=== PATIENT | male | born 1950 | race Caucasian/White ===

== ENCOUNTER 2017-10-06 17:13 | Emergency (ER) | payer BC, MEDICARE ==
[~2017-10-06] VITALS: Ht 170.2 cm; Wt 93.9 kg
[~2017-10-06 17:13] MED LIST: ASPIRIN CHEW81 MG PO; BACTRIM DS TAB1 EACH PO; CENTRUM SILVER1 EAC3 PO; CLOPIDOGREL75 MG PO; LATANOPROST2.5 ML OP; LEVAQUIN500 MG PO; LOSARTAN POTAS100 MG PO; LOTEMAX5 ML OP; PRESERVISION A1 EACH PO; TERAZOSIN HCL2 MG PO; VITAMIN C1000 MG PEG
--- OUTSIDE RECORDS SUMMARY | 2017-10-06 17:16 | XMS REPORT | Clinical Summary ---
Author Author [facility] Organization [facility] Address Unknown Phone Unavailable Care Team Providers Care Jalousie Installer Name Role Phone Lasha Rothman MD PCP Allergies No Known Allergies Current Medications Prescription Sig. Disp. Refills Start End Date Status Date terazosin (HYTRIN) 2 MG TK 1 C PO BID 04/25/20 Active capsule 17 clopidogrel (PLAVIX) 75 Take 75 mg by mouth 3 05/23/19 Active mg tablet daily. 18 fluticasone (FLONASE) 50 2 sprays by Each Nare 1 05/24/19 Active mcg/actuation nasal spray route daily. 18 losartan (COZAAR) 100 MG TK 1 T PO D 0 05/13/20 Active tablet 17 pravastatin (PRAVACHOL) TAKE 1 TABLET DAILY ONCE 1 07/24/19 Active 40 MG tablet A DAY ORALLY 18 brimonidine-timolol Administer 1 drop to both Active (COMBIGAN) 0.2-0.5 % eyes every 12 (twelve) ophthalmic solution hours. acetaminophen (TYLENOL) Take 325 mg by mouth Active 325 MG tablet every 6 (six) hours as needed for fever. diphenhydrAMINE Take 25 mg by mouth Active (BENADRYL) 25 mg tablet nightly as needed for sleep. multivitamin (THERAGRAN) Take 1 tablet by mouth Active tablet daily. ascorbic acid, vitamin C, Take 1,000 mg by mouth Active (VITAMIN C) 500 MG tablet daily. aspirin (ECOTRIN) 81 MG Take 81 mg by mouth Active enteric coated tablet daily. 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 Procedure Pass General Surgery 08/07/2017 Surgery General Surgery Cordell Pierre MD LEFT PKP, VITRECTOMY 08/06/2017 Anesthesia General Surgery eTd Duncan MD Event 08/03/2017 Hospital Radiology Cordell Pierre MD Encounter 08/03/2017 Pre-Admit Pre-Admission Testing Cordell Pierre MD Preop testing (Primary Testing Dx) Appointment after 10/05/2016 Family History Medical History Relation Name Comments Hypertension Father Corneal ulcer Mother Relation Name Status Comments Father Alive Mother Social History Tobacco Use Types Packs/Day Years Used Date Former Smoker 2 36 Smokeless Tobacco: Never Used Alcohol Use Drinks/Week oz/Week Comments Yes wine every other day Sex Assigned at Date Recorded Not on file Last Filed Vital Signs Vital Sign Reading Time Taken Blood Pressure 136/75 08/07/2017 10:53 AM CDT Pulse 70 08/07/2017 10:53 AM CDT Temperature 36.4 C (97.6 F) 08/07/2017 10:45 AM CDT Respiratory Rate 11 08/07/2017 10:45 AM CDT Oxygen Saturation 95% 08/07/2017 10:45 AM CDT Inhaled Oxygen - - Concentration Weight 99.4 kg (219 lb 3.2 oz) 08/07/2017 6:06 AM CDT Height 167.6 cm (5' 6") 08/07/2017 6:06 AM CDT Body Mass Index 35.38 08/07/2017 6:06 AM CDT Plan of Treatment Health Maintenance Due Date Last Done Comments COLON CANCER SCREENING 01/25/2002 SHINGRIX VACCINE (#1) 01/25/2002 ZOSTER VACCINE 2012 PNEUMOCOCCAL 01/25/2017 POLYSACCHARIDE VACCINE AGE 65 AND OVER PNEUMOCOCCAL-13 01/25/2017 INFLUENZA VACCINE 12/19/2017 Implants Implanted Type Area Vulnerability Researcher Device Expiration Model / Identifier Date Serial / Lot Tissue Corneal - [id number] - Ophthalmic Left: [employer] [id number] 08/14/2017 PKP / [id number] Implants Cornea [id number] Implanted: Qty: 1 on 08/07/2017 by [id number] / Cordell Pierre MD N/A Procedures Procedure Name Priority Date/Time Associated Diagnosis Comments MO AN ELECTIVE Routine 08/07/2017 ENDOTRACHEAL AIRWAY 7:54 AM CDT Procedure Note - Priti Dhillon, HARDWARE ENGINEER - 08/07/2017 7:54 AM CDT Airway Date/Time: 08/07/2017 7:32 AM Performed by: PRITI DHILLON Authorized by: TED DUNCAN Location: OR Urgency: Elective Difficult Airway: No Resident/C RNA/AA: PRITI DHILLON Preoxygena rigo with 100% O2: Yes C-spine Precaution s Maintained Throughout : Yes Mask Ventilatio n: Easy mask Final Airway Type: Endotrache al airway Final Endotrache al Airway: ETT Cuffed: Yes Technique Used: Direct laryngosco py Insertion Site: Oral Blade Type: Puckett Laryngosco pe Blade/Vide olaryngosc ope Blade Size: 2 ETT Size (mm): 8.0 Cuff at minimum occlusion pressure: Yes Measured from: Lips ETT to Lips (cm): 22 Placement Verified by: CO2 detection, direct visualizat ion and equal breath sounds Laryngosco pic view: Grade IIa - partial view of glottis Rapid Sequence Induction (RSI): No Modified RSI: No Number of Attempts at Approach: 1 Dentition /lips/tong ue as per pre-op. Head/neck neutral during DL x 1. 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 7:15 AM CDT Case Notes MARGARITA Special Needs TISSUE ORDERED PER CA; tissue will arrive 08/07 and 0630PT HAS A [employer]ER after 10/05/2016 Results * Surgical pathology request (08/07/2017 12:07 PM) Component Value Ref Range Surgical pathology report See link below for PDF Lab Report Result status This is Final Report to [id number] Specimen Performing Laboratory [facility] DEPARTMENT OF PATHOLOGY AND GENOMIC MEDICINE [address] [place] [id number] * POC glucose (08/07/2017 10:18 AM) Component Value Ref Range POC glucose 127 (H) 65 - 99 mg/dL Comment: Meter ID: [id number] Orbitread Operator: Lyn Irvin Specimen Performing Laboratory [facility] DEPARTMENT OF PATHOLOGY AND GENOMIC MEDICINE [address] [place] [address] * Aerobic culture (08/07/2017 8:06 AM) Component Value Ref Range Aerobic culture isolate No growth after 3 days. Comment: Specimen Information Specimen Source: Eye Specimen Site: Donor media Specimen Performing Laboratory Eye - Donor media [facility] DEPARTMENT OF PATHOLOGY AND GENOMIC MEDICINE [address] [place] [id number] * Gram stain (08/07/2017 8:06 AM) Component Value Ref Range Gram stain isolate No WBC's or organisms seen. Comment: Specimen Information Specimen Source: Eye Specimen Site: Donor media Specimen Performing Laboratory Eye - Donor media [facility] DEPARTMENT OF PATHOLOGY AND GENOMIC MEDICINE [address] [place] [address] * Fungus culture (08/07/2017 8:06 AM) Component Value Ref Range Fungus culture isolate No growth after 4 weeks of incubation. Comment: Specimen Information Specimen Source: Eye Specimen Site: Donor media Specimen Performing Laboratory Eye - Donor media [facility] DEPARTMENT OF PATHOLOGY AND GENOMIC MEDICINE [address] [place] [address] * Anaerobic culture (08/07/2017 8:06 AM) Component Value Ref Range Anaerobic culture isolate No anaerobic organisms isolated. Comment: Specimen Information Specimen Source: Eye Specimen Site: Donor media Specimen Performing Laboratory Eye - Donor [facility] DEPARTMENT [place] [address] * XR Chest 2 Vw (08/03/2017 9:55 AM) Specimen Performing Laboratory [facility] [address] [place] [address] Narrative EXAMINATION:XR CHEST 2 VW CLINICAL HISTORY:Z01.818 Encounter for other preprocedural examination, preop COMPARISON:None FINDINGS: The heart size is borderline. A multilead pacemaker is in place. The mediastinum is otherwise unremarkable. The lungs are clear. IMPRESSION: There are no acute cardiopulmonary abnormalities identified. [id number] Procedure Note Interface, Radiology Results Incoming - 08/03/2017 10:56 AM CDT EXAMINATION: XR CHEST 2 VW CLINICAL HISTORY: Z01.818 Encounter for other preprocedural examination, preop COMPARISON: None FINDINGS: The heart size is borderline. A multilead pacemaker is in place. The mediastinum is otherwise unremarkable. The lungs are clear. IMPRESSION: There are no acute cardiopulmonary abnormalities identified. [id number] * CBC hemogram (08/03/2017 8:59 AM) Component Value Ref Range WBC 5.24 4.50 - 11.00 k/uL RBC 4.57 4.40 - 6.00 m/uL HGB 14.5 14.0 - 18.0 g/dL HCT 43.4 41.0 - 51.0 % MCV 95.0 82.0 - 100.0 fL MCH 31.7 27.0 - 34.0 pg MCHC 33.4 31.0 - 37.0 g/dL RDW - SD 44.1 37.0 - 55.0 fL MPV 10.2 8.8 - 13.2 fL Platelet count 200 150 - 400 k/uL Nucleated RBC 0.00 /100 WBC Specimen Performing Laboratory Blood [facility] DEPARTMENT OF PATHOLOGY AND GENOMIC MEDICINE [address] [place] [address] after 10/05/2016 Insurance Payer Benefit Subscriber ID Type Phone Address Plan / Group MEDICARE MEDICARE xxxxxxxxxx Medicare [place], [place] PART A AND B BCBS BCBS xxxxxxxxxxxx Indemnity PAR/TRAD PLAN
[2017-10-06] MEDS ORDERED: KETOROLAC TROMETHAMINE 30 MG/ML VIAL IV ONE (17:45)
[2017-10-06 18:07] LABS: BASOPHILS # (AUTO) 0.1 (0.0-0.1); BASOPHILS % 0.9 % (0.0-1.0); EOSINOPHILS # (AUTO) 0.2 (0.0-0.4); EOSINOPHILS % 2.9 % (0.0-6.0); HEMOGLOBIN 13.7 g/dL (14.0-18.0); LYMPHOCYTES % 13.6 % (18.0-39.1); MEAN CORPUSCULAR HEMOGLOBIN 32.3 pg (28-32); MEAN CORPUSCULAR HGB CONC 34.3 g/dL (31-35); MEAN CORPUSCULAR VOLUME 94.3 fL (81-99); MONOCYTES # (AUTO) 0.6 (0.2-0.8); NEUTROPHILS # (AUTO) 5.7 (2.1-6.9); NEUTROPHILS % 74.2 % (38.7-80.0); PLATELET COUNT 231 x10e3/uL (140-360); RED BLOOD COUNT 4.24 x10e6/uL (4.3-5.7)
[2017-10-06 18:09] LABS: CLARITY,URINE CLEAR (CLEAR); COLOR,URINE YELLOW (YELLOW)
[2017-10-06 18:10] LABS: LEUKOCYTE ESTERASE ,URINE NEGATIVE (NEGATIVE); NITRITE,URINE NEGATIVE (NEGATIVE)
[2017-10-06 18:11] LABS: BILIRUBIN,URINE NEGATIVE (NEGATIVE); KETONES,URINE NEGATIVE (NEGATIVE); PROTEIN,URINE DIPSTICK NEGATIVE (NEGATIVE); URINE UROBILINOGEN 0.2 mg/dL (0.2 - 1)
--- NOTE | 2017-10-06 18:24 | Diagnostic Imaging Report ---
EXAMINATION: CT of the abdomen and pelvis without contrast. TECHNIQUE: Spiral CT images of the abdomen and pelvis were performed from the lung bases to the lesser trochanters. No intravenous contrast was given per renal stone protocol. Coronal and sagittal reformatted images were obtained. COMPARISON: None. CLINICAL HISTORY:Right flank pain for 4 days, difficulty urinating DISCUSSION: ABSENCE OF INTRAVENOUS CONTRAST DECREASES SENSITIVITY FOR DETECTION OF FOCAL LESIONS AND VASCULAR PATHOLOGY. ABDOMEN/PELVIS: LOWER THORAX: Distal portion of pacemaker wires noted in the right atrium and right ventricle. Calcified pleural plaque in the right posterior lower lobe pleura. Lung bases are otherwise clear. HEPATOBILIARY: 2.8 x 2.3 cm simple cyst in hepatic segment VII (series 3, image 33). 1.6 x 1.4 cm simple cyst in hepatic segment IVB (series 3, image 51). No other focal lesions. No intra or extrahepatic biliary ductal dilation. GALLBLADDER: No radio-opaque stones or sludge. No wall thickening. SPLEEN: Mild splenomegaly, measuring 14.0 cm in AP diameter. PANCREAS: No focal masses or ductal dilatation. ADRENALS: No adrenal nodules. KIDNEYS/URETERS: 3-4 mm partially obstructing calculus in the distal right ureter just proximal to the UVJ (series 3, image 139), which results in mild pelvocaliectasis. No significant perirenal or periureteral stranding. No other renal or ureteral calculi. No left hydronephrosis or obstruction. 1.9 cm simple cyst in the superior pole of the right kidney (series 3, image 51). PELVIC ORGANS/BLADDER: Bladder is decompressed but grossly unremarkable. Prostate is unremarkable. Pelvic phleboliths. PERITONEUM/RETROPERITONEUM: No free air or fluid. LYMPH NODES: No intra-abdominal,retroperitoneal, pelvic or inguinal lymphadenopathy. VESSELS: Mild atherosclerotic calcification of the infrarenal abdominal aorta and iliac vessels. GI TRACT: No bowel dilation or evidence of obstruction. No pericolonic inflammatory changes. Appendix is well identified and normal in caliber. A few scattered diverticula in the sigmoid colon, without diverticulitis. BONES AND SOFT TISSUES: No aggressive lytic lesions. Multilevel degenerative disc changes in the lumbosacral spine, worse at L3-L4, L4-L5 and L5-S1. Soft tissues are grossly unremarkable. IMPRESSION: 1. 3-4 mm partially obstructing calculus in the distal right ureter just proximal to the UVJ, which results in mild pelvocaliectasis. 2. No other renal or ureteral calculi. 3. 2.8 and 1.6 cm simple hepatic cysts. 4. Mild splenomegaly. Signed by: Dr. Ken Peterson M.D. on 10/06/2017 6:20 PM
[2017-10-06 18:28] LABS: BLOOD UREA NITROGEN 22 mg/dL (7-26); BUN/CREATININE RATIO 19 (6-25); CALCIUM 9.6 mg/dL (8.4-10.2); CARBON DIOXIDE 20 mmol/L (22-29); CHLORIDE 110 mmol/L (98-107); CREATININE, SERUM 1.17 mg/dL (0.72-1.25); EST GLOMERULAR FILTRATION RATE > 60 ML/MIN (60-); GLUCOSE 98 mg/dL (74-118); SODIUM 140 mmol/L (136-145)
[2017-10-06] MEDS ORDERED: KETOROLAC TROMETHAMINE 60 MG/2 ML VIAL IM ONE (18:30)
[2017-10-06 18:34] LABS: CALCIUM OXALATE CRYSTALS,UR FEW (FEW); EPITHELIAL CELLS,URINE MANY /LPF; RBC,URINE 0-5 /HPF (0-5)
[2017-10-06] MEDS ORDERED: HYDROCODONE/APAP 10MG-325MG TAB PO NR (18:45)
[2017-10-06 18:55] VITALS: BP 165/99
== END 2017-10-06 19:07 | disposition home or self-care (01) ==
LOC: ER 17:13
DX: R10.31 Right lower quadrant pain (principal); R11.0 Nausea; N20.1 Calculus of ureter; I10 Essential (primary) hypertension; I25.10 Atherosclerotic heart disease of native coronary artery without angina pectoris; E78.5 Hyperlipidemia, unspecified; I73.9 Peripheral vascular disease, unspecified
CPT/HCPCS: 36415; 74176; 80048; 81001; 85025; 99284; J1885

== ENCOUNTER → 2017-11-28 | Outpatient (CLI) | payer MEDICARE, BC ==
--- NOTE | 2017-11-28 10:52 | Diagnostic Imaging Report ---
PROCEDURE:X-RAY ABDOMEN - KUB COMPARISON:CT abdomen and pelvis 10/06/2017. INDICATIONS:RENAL COLIC FINDINGS: No calcifications project over the renal shadows or expected ureteral courses. Small distal right ureteral calculus described on the comparison CT is not identified by plain radiography. Multiple pelvic phleboliths. Bowel gas pattern is nonobstructive. No mass effect or organomegaly. Regional skeletal structures are intact. Degenerative changes of the left sacroiliac joint. CONCLUSION: no plain film evidence of urolithiasis. Distal right ureteral calculus is seen on comparison CT is not identified by plain radiography. Dictated by: Yoel Tran M.D. on 11/28/2017 at 10:57 Electronically approved by: Yoel Tran M.D. on 11/28/2017 at 10:57
== END ==
LOC: RAD 10:25
PROVIDERS: ATTEND Family Medicine
DX: N23 Unspecified renal colic (principal)
CPT/HCPCS: 74018

== ENCOUNTER 2018-01-01 09:53 | Observation (INO) | payer MEDICARE, BC ==
[~2018-01-01] VITALS: Ht 167.6 cm; Wt 97.5 kg
[2018-01-01] MEDS ORDERED: GLUCAGON FOR INJ 1 MG VIAL IV ONE (10:15)
[2018-01-01 10:39] LABS: BASOPHILS % 0.6 % (0.0-1.0); EOSINOPHILS # (AUTO) 0.1 (0.0-0.4); EOSINOPHILS % 2.3 % (0.0-6.0); HEMATOCRIT 41.7 % (38.2-49.6); HEMOGLOBIN 14.5 g/dL (14.0-18.0); LYMPHOCYTES # (AUTO) 1.2 (1.0-3.2); LYMPHOCYTES % 21.8 % (18.0-39.1); MEAN CORPUSCULAR HEMOGLOBIN 32.6 pg (28-32); MEAN CORPUSCULAR HGB CONC 34.8 g/dL (31-35); MEAN CORPUSCULAR VOLUME 93.7 fL (81-99); MONOCYTES # (AUTO) 0.4 (0.2-0.8); NEUTROPHILS # (AUTO) 3.5 (2.1-6.9); NEUTROPHILS % 67.1 % (38.7-80.0); PLATELET COUNT 194 x10e3/uL (140-360); RED BLOOD COUNT 4.45 x10e6/uL (4.3-5.7); RED CELL DISTRIBUTION WIDTH 12.1 % (11.7-14.4)
[2018-01-01 10:42] LABS: INR 1.05; PROTHROMBIN TIME 12.9 seconds (11.9-14.5)
[2018-01-01 10:43] LABS: PARTIAL THROMBOPLASTIN TIME 26.8 seconds (23.8-35.5)
[2018-01-01 10:55] LABS: ALANINE AMINOTRANSFERASE 18 IU/L (0-55); ALBUMIN 4.1 g/dL (3.5-5.0); ALBUMIN/GLOBULIN RATIO 1.3 (0.8-2.0); ALKALINE PHOSPHATASE 62 IU/L (40-150); ANION GAP 13.8 mmol/L (8-16); BLOOD UREA NITROGEN 16 mg/dL (7-26); BUN/CREATININE RATIO 20 (6-25); CALCIUM 9.4 mg/dL (8.4-10.2); CARBON DIOXIDE 24 mmol/L (22-29); CHLORIDE 101 mmol/L (98-107); CREATININE, SERUM 0.81 mg/dL (0.72-1.25); EST GLOMERULAR FILTRATION RATE > 60 ML/MIN (60-); GLUCOSE 109 mg/dL (74-118); POTASSIUM 3.8 mmol/L (3.5-5.1); SODIUM 135 mmol/L (136-145)
--- NOTE | 2018-01-01 11:44 | Diagnostic Imaging Report ---
PROCEDURE: SOFT TISSUE NECK COMPARISON: None. INDICATIONS: DYSPHAGIA FINDINGS: C1 through the upper aspect of C7 are visualized on the lateral view. No evidence of fracture. There is mild anterolisthesis of C3 on C4. There are multilevel degenerative disc and facet degenerative changes, most pronounced at C5-C6. The prevertebral soft tissues are unremarkable. No evidence of radiopaque foreign body. CONCLUSION: No radiographic etiology identified for the patient's dysphagia. A swallow study or CT may be considered if clinically indicated. Multilevel degenerative disc changes in the cervical spine, most pronounced at C5-C6. Dictated by: IHSAN MALLOY M.D. on 01/01/2018 at 11:50 Electronically approved by: IHSAN MALLOY M.D. on 01/01/2018 at 11:50
[2018-01-01] MEDS: SODIUM CHLORIDE 0.9% 1000ML 1,000 ML IV SCH ×2 (11:59→21:20)
[2018-01-01] MEDS ORDERED: PANTOPRAZOLE 40 MG 10ML VIAL IV SCH ×2 (12:30→21:00)
[2018-01-01] MEDS ORDERED: SUCCINYLCHOLINE 200 MG/10 ML SYR ONE (12:55)
[2018-01-01] MEDS ORDERED: PROPOFOL IV EMULSION 10 MG/ML 20 ML VIAL ONE (12:55)
[2018-01-01] MEDS ORDERED: ROCURONIUM BROMIDE 10 MG/ML 5ML VIAL ONE (12:55)
[2018-01-01] MEDS ORDERED: COMBIGAN EYE DRO5 ML (13:24)
[2018-01-01] MEDS ORDERED: DORZOLAMIDE HCL10 ML OP (13:30)
[2018-01-01] MEDS ORDERED: DUREZOL5 ML (13:30)
[2018-01-01 13:34] VITALS: BP 129/76
[2018-01-01 13:54] VITALS: BP 129/76
[2018-01-01 13:56] VITALS: BP 129/76
[2018-01-01] MEDS ORDERED: FENTANYL CITRATE/PF 100MCG/2 ML INJ ONE (14:01)
[2018-01-01] MEDS ORDERED: METOCLOPRAMIDE HCL 10 MG/2ML VIAL IV ONE (15:15)
--- NOTE | 2018-01-01 15:28 | Operative Report ---
DATE OF PROCEDURE: January 01, 2018 REFERRING PHYSICIAN: Prudence Rothman MD PROCEDURE PERFORMED: Esophagogastroduodenoscopy with esophageal dilatation and biopsies. INDICATIONS FOR EGD: Dysphagia, possible foreign body in esophagus. MEDICATION: Patient was done under general endotracheal anesthesia. Please see anesthesiologist's note. PROCEDURE: With the patient in the supine position and after adequate induction of general endotracheal anesthesia, the flexible fiberoptic Olympus gastroscope was introduced into the esophagus under direct visualization without any difficulty. There was some patchy erythema noted in the distal esophagus. Some tongues of velvety red mucosa were noted to extend proximally from the GE junction, and biopsies were obtained to rule out Felix's. A mild stricture was noted at the GE junction that was dilated to a size 52-Micronesian [place]oredo. The scope was then advanced with ease into the stomach, and the mucosa overlying the antrum and the body revealed some patchy erythema and mild to moderate edema, and biopsies were obtained and sent to stain for H. pylori. The pylorus was intubated with ease, and the scope was advanced all the way to the 2nd portion of the duodenum. The scope was then withdrawn slowly. Mucosa overlying the proximal 2nd portion and the duodenal bulb appeared to be within normal limits. The scope was then withdrawn back into the stomach and retroflexed, and the mucosa overlying the fundus and the cardia appeared to be within normal limits. The scope was then straightened out. The stomach was decompressed. The scope was subsequently withdrawn. Patient tolerated the procedure well. IMPRESSION 1. Distal esophagitis. 2. Rule out Felix's esophagus. 3. 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 4. Gastritis, biopsied. Biopsy sent to stain for H. pylori. PLAN: Follow up histology. Initiate Protonix 40 mg 1 p.o. q.a.m. a.c. Job#: [id number] cc:PRUDENCE ROTHMAN MD
[2018-01-01] MEDS ORDERED: PANTOPRAZOLE 40 MG 10ML VIAL IV NR (15:45)
[2018-01-01 16:01] VITALS: BP 124/74
[2018-01-01] MEDS: METOCLOPRAMIDE HCL 10 MG/2ML VIAL IV SCH ×2 (16:04→21:22)
[2018-01-01 20:00] VITALS: BP 119/74
[2018-01-01 21:06] VITALS: BP 119/74
== END 2018-01-01 22:48 | disposition home or self-care (01) ==
LOC: ER 09:53 → ERHOLD 11:50 → IMCU 13:10
PROVIDERS: ADMIT Internal Medicine Gastroenterology; ATTEND Internal Medicine Gastroenterology
DX: K22.2 Esophageal obstruction (principal); I73.9 Peripheral vascular disease, unspecified; Z95.0 Presence of cardiac pacemaker; E78.5 Hyperlipidemia, unspecified; I10 Essential (primary) hypertension; K29.70 Gastritis, unspecified, without bleeding; K22.70 Barrett's esophagus without dysplasia; H40.9 Unspecified glaucoma; K21.0 Gastro-esophageal reflux disease with esophagitis; Z87.891 Personal history of nicotine dependence
CPT/HCPCS: 36415; 43249; 43254; 70360; 80053; 85025; 85610; 85730; 88305; 88312; 99284; G0378; J1610; J2765; J7030; 43239

== ENCOUNTER → 2018-07-20 | Day surgery (SDC) | payer MEDICARE, BC ==
[~2018-07-20] MED LIST changes: +BENADRYL25 M1 PO; +COMBIGAN EYE DRO5 ML; +DORZOLAMIDE HCL10 ML OP; +DUREZOL5 ML; +FENTANYL CITRATE/PF 100MCG/2 ML INJ ONE; +FLONASE; +HYOSCYAMINE SULFATE 0.5 MG/ML INJ ONE; +LIDOCAINE HCL 2% LOCAL INJ 5 ML SDV VIAL INJ ONE; +LUMIGAN2.5 M1 OS; +MIDAZOLAM HCL 2 MG/2 ML VIAL ONE; +PANTOPRAZOLE SO40 MG PO; +PRAVASTATIN SOD80 MG PO; +PROPOFOL IV EMULSION 10 MG/ML 50 ML VIAL ONE; +TYLENOL PO; -VITAMIN C1000 MG PEG; +VITAMIN C1000 MG PO; +ZETIA10 MG PO
--- NOTE | 2018-07-20 20:34 | Operative Report ---
DATE OF PROCEDURE: 07/20/2018 SURGEON: Guero Hill MD PROCEDURE: EGD with esophageal brushings and colonoscopy with polypectomy and biopsies. INDICATIONS: 1. For EGD is dysphagia. 2. For colonoscopy is surveillance colonoscopy, personal history of colon polyps. MEDICATION: The patient was done under MAC. Please see anesthesiologist's note. PROCEDURE: With the patient in left lateral decubitus position, flexible fiberoptic Olympus gastroscope was introduced into the esophagus under direct visualization without any difficulty. There were some scattered whitish plaques noted and the cervical esophagus brushings were obtained to stain for [place]. Tongues of Felix's epithelium were noted in the distal esophagus. Those were not biopsied as biopsies were obtained in the recent past. The scope was then advanced with ease into the stomach traversing a small sliding hiatal hernia. Mucosa overlying the antrum and the body revealed some patchy areas of erythema. Pylorus was of normal contour and shape, was intubated with ease and the scope was advanced all the way to the 2nd portion of the duodenum. The scope was then withdrawn slowly and mucosa overlying the proximal 2nd portion and the duodenal bulb appeared to be within normal limits. The scope was then withdrawn back into the stomach and retroflexed and the mucosa overlying the fundus and the cardia appeared to be within normal limits. The scope was then straightened out, it was subsequently withdrawn. The patient tolerated procedure well. IMPRESSION: 1. Rule out [place] esophagitis. 2. Esophagus dilated to size 52-Maltese Loredo. 3. Felix esophagus. 4. Small sliding hiatal hernia. 5. Gastritis, mild. PLAN: Follow up brushings. Continue Protonix 40 mg one p.o. q.a.m. a.c. The patient was then turned around and after adequate lubrication of the anal canal, flexible fiberoptic Olympus colonoscope was inserted into the rectum with ease and advanced all the way to the cecum. Ileocecal valve was ulcerated and biopsies were obtained. It was intubated with ease and the scope was advanced into the terminal ileum. It grossly appeared to be within normal limits, but biopsies were obtained. The scope was then withdrawn back into the colon. It was then withdrawn slowly and several minute ulcerations were noted in the proximal ascending colon. Biopsies were obtained. Two polyps were removed per snare electrocautery from the ascending colon and one polypectomy site was hemoclipped. The transverse appeared to be within normal limits. Diverticular disease was noted to involve the distal descending and the sigmoid colon. In the distal sigmoid, there was some yellowish hue to the mucosa and biopsies were obtained to rule out lipoma. The rectum appeared to be within normal limits. The scope was then retroflexed into the distal rectum and small internal hemorrhoids were noted, none of which was actively bleeding. The scope was then straightened out, it was subsequently withdrawn. The patient tolerated procedure well. IMPRESSION: 1. Ulcerated ileocecal valve, biopsied. 2. Ulcerated proximal ascending colon, biopsied. 3. Ascending colon polyps x2, snared, one polypectomy site hemoclipped. 4. Diverticulosis. 5. Rule out lipoma, sigmoid colon. 6. Internal hemorrhoids, none actively bleeding. PLAN: Follow up pathology. The patient might benefit from a followup colonoscopy in 3-5 years. Guero Hill MD [facility] [place] /[id number] cc: Lasha Rothman MD
--- OUTSIDE RECORDS SUMMARY | 2018-07-22 10:33 | XMS REPORT | Clinical Summary ---
Author Author Nunez Jain Organization [facility] Address Unknown Phone Unavailable Care Team Providers Care Director Instructional Material Name Role Phone Lasha Rothman MD PCP Allergies No Known Allergies Medications End Date Status Medication Sig Dispensed Refills Start Date Active terazosin (HYTRIN) 2 MG TK 1 C PO BID 0 capsule 7 Active clopidogrel (PLAVIX) 75 Take 75 mg by 3 mg tablet mouth daily. 8 Active fluticasone (FLONASE) 50 2 sprays by 1 mcg/actuation nasal spray Each Nare 8 route daily. Active losartan (COZAAR) 100 MG TK 1 T PO D 0 tablet 7 Active pravastatin (PRAVACHOL) TAKE 1 TABLET 1 40 MG tablet DAILY ONCE A 8 DAY ORALLY Active brimonidine-timolol Administer 1 0 (COMBIGAN) 0.2-0.5 % drop to both ophthalmic solution eyes every 12 (twelve) hours. Active acetaminophen (TYLENOL) Take 325 mg 0 325 MG tablet by mouth every 6 (six) hours as needed for fever. Active diphenhydrAMINE Take 25 mg by 0 (BENADRYL) 25 mg tablet mouth nightly as needed for sleep. Active multivitamin (THERAGRAN) Take 1 tablet 0 tablet by mouth daily. Active ascorbic acid, vitamin C, Take 1,000 mg 0 (VITAMIN C) 500 MG tablet by mouth daily. Active aspirin (ECOTRIN) 81 MG Take 81 mg by 0 enteric coated tablet mouth daily. 07/01/2018 Discontinued ezetimibe (ZETIA) 10 mg Take 10 mg by 0 tablet mouth daily. 07/01/2018 Discontinued pantoprazole (PROTONIX) Take 20 mg by 0 20 MG EC tablet mouth daily. 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/07/2017 Hospital General Surgery Encounter Cordell Pierre MD 08/03/2017 Hospital Radiology Encounter Cordell Pierre MD Preop testing (Primary Dx) 08/03/2017 Pre-Admit Pre-Admission Testing Testing Appointment after 07/21/2017 Family History Medical History Relation Name Comments Hypertension Father Corneal ulcer Mother Relation Name Status Comments Father Alive Mother Social History Date Tobacco Use Types Packs/Day Years Used Former Smoker 2 36 Smokeless Tobacco: Never Used Alcohol Use Drinks/Week oz/Week Comments Yes wine every other day Sex Assigned at Date Recorded Not on file Industry Job Start Date Occupation Not on file Not on file Not on file Travel End Travel History Travel Start No recent travel history available. Last Filed Vital Signs Time Taken Vital Sign Reading 08/07/2017 10:53 AM CDT Blood Pressure 136/75 08/07/2017 10:53 AM CDT Pulse 70 08/07/2017 10:45 AM CDT Temperature 36.4 C (97.6 F) 08/07/2017 10:45 AM CDT Respiratory Rate 11 08/07/2017 10:45 AM CDT Oxygen Saturation 95% - Inhaled Oxygen - Concentration 06/26/2018 1:10 PM [facility] Weight 99.8 kg (220 lb) 06/26/2018 1:10 PM [facility] Height 167.6 cm (5' 6") 06/26/2018 1:10 PM [facility] Body Mass Index 35.51 Plan of Treatment Health Maintenance Due Date Last Done Comments COLON CANCER SCREENING 01/25/2002 SHINGLES VACCINES (#1) 01/25/2002 65+ PNEUMOCOCCAL VACCINE 01/25/2017 (1 of 2 - PCV13) PNEUMOCOCCAL 01/25/2017 POLYSACCHARIDE VACCINE AGE 65 AND OVER INFLUENZA VACCINE 12/19/2017 Implants Device Identifier Shelf Expiration Date Model / Serial / Lot Implanted Type Area Manufactur er [id number] 08/14/2017 PKP / [id number] / N/A Tissue Corneal - [id number] - Ophthalmic Left: Cornea [employer] [id number] Implants BANK Implanted: Qty: 1 on 08/07/2017 by Cordell Pierre MD Procedures Comments Procedure Name Priority Date/Time Associated Diagnosis SURGICAL PATHOLOGY Routine 08/07/2017 REQUEST 12:07 PM CDT POC GLUCOSE Routine 08/07/2017 10:18 AM CDT GRAM STAIN Routine 08/07/2017 8:06 AM CDT ANAEROBIC CULTURE Routine 08/07/2017 8:06 AM CDT FUNGUS CULTURE Routine 08/07/2017 8:06 AM CDT AEROBIC CULTURE Routine 08/07/2017 8:06 AM CDT KS AN ELECTIVE Routine 08/07/2017 ENDOTRACHEAL AIRWAY 7:54 AM CDT Procedure Note - Priti Dhillon, BELL NECK HAMMERER - 08/07/2017 7:54 AM CDT Airway Date/Time: [...] pre-op. Head/neck neutral during DL x 1. KERATOPLASTY, PENETRATING 08/07/2017 Corneal graft rejection 7:15 AM CDT Case Notes MARGARITA Special Needs TISSUE ORDERED PER CA; tissue will arrive 08/07 and 629PT HAS A [employer] PACEMAKER XR CHEST 2 VW Routine 08/03/2017 Preop testing 9:55 AM CDT CBC HEMOGRAM Routine 08/03/2017 Preop testing 8:59 AM CDT after 07/21/2017 Results * Surgical pathology request (08/07/2017 12:07 PM CDT) [facility] DEPARTMENT OF PATHOLOGY AND GENOMIC MEDICINE Surgical pathology report See link below for PDF Lab [facility] DEPARTMENT OF Report PATHOLOGY AND GENOMIC MEDICINE Result status This is Final Report to [facility] DEPARTMENT OF [id number] PATHOLOGY AND GENOMIC MEDICINE Performing Organization Address City/[facility] Phone Number [facility] DEPARTMENT OF [address] [place] [phone] PATHOLOGY AND GENOMIC MEDICINE * POC glucose (08/07/2017 10:18 AM CDT) POC glucose 127 (H) 65 - 99 mg/dL [facility] DEPARTMENT OF Comment: PATHOLOGY AND Meter ID: [id number] GENOMIC MEDICINE Product Engineering Manager: Lyn Irvin Performing Organization Address City/[facility] Phone Number [facility] DEPARTMENT [address] [place] [address] PATHOLOGY AND GENOMIC MEDICINE * Aerobic culture (08/07/2017 8:06 AM CDT) Aerobic culture isolate No growth after 3 days. [facility] DEPARTMENT OF Comment: PATHOLOGY AND Specimen Information GENOMIC MEDICINE Specimen Source: Eye Specimen Site: Donor media Specimen Eye - Donor media Performing Organization Address City/[facility] Phone Number [facility] DEPARTMENT OF [address] [place] [phone] PATHOLOGY AND GENOMIC MEDICINE * Gram stain (08/07/2017 8:06 AM CDT) Gram stain isolate No WBC's or organisms seen. [facility] DEPARTMENT OF Comment: PATHOLOGY AND Specimen Information GENOMIC MEDICINE Specimen Source: Eye Specimen Site: Donor media Specimen Eye - Donor media Performing Organization Address City/[facility]/Zipcode Phone Number [facility] DEPARTMENT OF [address] [place] [phone] PATHOLOGY AND GENOMIC MEDICINE * Fungus culture (08/07/2017 8:06 AM CDT) Fungus culture isolate No growth after 4 weeks of [facility] DEPARTMENT OF incubation. PATHOLOGY AND Comment: GENOMIC MEDICINE Specimen Information Specimen Source: Eye Specimen Site: Donor media Specimen Eye - Donor media Performing Organization Address City/[facility]/Zipcode Phone Number [facility] DEPARTMENT OF [address] [place] [phone] PATHOLOGY AND GENOMIC MEDICINE * Anaerobic culture (08/07/2017 8:06 AM CDT) Anaerobic culture isolate No anaerobic organisms [facility] DEPARTMENT OF isolated. PATHOLOGY AND Comment: GENOMIC MEDICINE Specimen Information Specimen Source: Eye Specimen Site: Donor media Specimen Eye - Donor media Performing Organization Address [facility]/Zipcode Phone Number [facility] DEPARTMENT [address] [address] PATHOLOGY AND GENOMIC MEDICINE * XR Chest 2 Vw (08/03/2017 9:55 AM CDT) Narrative Performed At EXAMINATION:XR CHEST 2 VW RADIANT CLINICAL HISTORY:Z01.818 Encounter for other preprocedural examination, preop COMPARISON:None FINDINGS: The heart size is borderline. A multilead pacemaker is in place. The mediastinum is otherwise unremarkable. The lungs are clear. IMPRESSION: There are no acute cardiopulmonary abnormalities identified. [id number] Procedure Note Interface, Radiology Results Incoming - 08/03/2017 10:56 AM CDT EXAMINATION: XR CHEST 2 VW CLINICAL HISTORY: Z01.818 Encounter for other preprocedural examination, preop COMPARISON: None FINDINGS: The heart size is borderline. A multilead pacemaker is in place. The mediastinum is otherwise unremarkable. The lungs are clear. IMPRESSION: There are no acute cardiopulmonary abnormalities identified. [id number] Performing Organization Address [facility]ode Phone Number [address] [phone] * CBC hemogram (08/03/2017 8:59 AM CDT) WBC 5.24 4.50 - 11.00 k/uL [facility] DEPARTMENT OF PATHOLOGY AND GENOMIC MEDICINE RBC 4.57 4.40 - 6.00 m/uL [facility] DEPARTMENT OF PATHOLOGY AND GENOMIC MEDICINE HGB 14.5 14.0 - 18.0 g/dL [facility] DEPARTMENT OF PATHOLOGY AND GENOMIC MEDICINE HCT 43.4 41.0 - 51.0 % [facility] DEPARTMENT OF PATHOLOGY AND GENOMIC MEDICINE MCV 95.0 82.0 - 100.[address] [facility] DEPARTMENT OF PATHOLOGY AND GENOMIC MEDICINE MCH 31.7 27.0 - 34.[address] [facility] DEPARTMENT OF PATHOLOGY AND GENOMIC MEDICINE MCHC 33.4 31.0 - 37.0 g/dL [facility] DEPARTMENT OF PATHOLOGY AND GENOMIC MEDICINE RDW - SD 44.1 37.0 - 55.[address] [facility] DEPARTMENT OF PATHOLOGY AND GENOMIC MEDICINE MPV 10.2 8.8 - 13.[address] [facility] DEPARTMENT OF PATHOLOGY AND GENOMIC MEDICINE Platelet count 200 150 - 400 k/uL [facility] DEPARTMENT OF PATHOLOGY AND GENOMIC MEDICINE Nucleated RBC 0.00 /[address] [facility] DEPARTMENT OF PATHOLOGY AND GENOMIC MEDICINE Specimen Blood Performing Organization Address City/State/[facility] Mex[facility]ode Phone Number [facility] DEPARTMENT [address] [place] [address] PATHOLOGY AND GENOMIC MEDICINE after 07/21/2017 Insurance Payer Benefit Subscriber ID Type Phone Address Plan / Group MEDICARE MEDICARE xxxxxxxxxx [place] B BCBS BCBS xxxxxxxxxxxx Indemnity PAR/TRAD PLAN Advance Directives Patient has advance care planning documents on file. For more information, dominic salgado contact: Enrique Blanco [address] [place] [address]
--- OUTSIDE RECORDS SUMMARY | 2018-07-22 10:34 | XMS REPORT | Continuity of Care Document ---
Author Author [facility] Interface Address Unknown Phone Unavailable Problems Problem Status Onset Date Classification Date Reported Comments Source LEFT PNEUMONIA Active 03/02/2017 [facility] Hypercholesteremia Resolved Problem 03/07/2017 [facility] HTN (<span [id number]">Confirmed</span>) Resolved Problem 03/07/2017 [facility] Prostatitis Resolved Problem 03/07/2017 [facility] PNEUMONIA, UNSPECIFIED ORGANISM Active [facility] Medications Medication Details Route Status Patient Instructions Ordering Provider Order Date Source Saccharomyces boulardii lyo 250 MG Oral Capsule [Florastor] 250 mg=1 cap, PO, BID, PRN for loose stool, X 5 day, # 10 cap, 0 Refill(s) Active 03/04/2017 [facility] Cefuroxime 500 MG Oral Tablet [Ceftin] 500 mg=1 tab, PO, BID, X 5 day, # 10 tab, 0 Refill(s) Active 03/04/2017 [facility] clopidogrel 75 MG Oral Tablet [Plavix] 75 mg=1 tab, PO, Daily, # 30 tab, 0 Refill(s) Active 03/04/2017 [facility] Aspirin 81 mg, PO, Daily, 0 Refill(s) Active 03/04/2017 [facility] Losartan 100 mg, 2 tab, Route: PO, Drug form: TAB, Daily, Dosing Weight 97.727, kg, Start date: 03/03/17 9:00:00 CDT, Duration: 30 day, Stop date: 04/01/17 9:00:00 CSTNotes: (Same as: Cozaar) No Longer Active 03/03/2017 [facility] Vitamin C 1,000 mg, 2 tab, Route: PO, Drug form: TAB, Daily, Dosing Weight 97.727, kg, Start date: 03/03/17 9:00:00 CDT, Duration: 30 day, Stop date: 04/01/17 9:00:00 CSTNotes: (Same as: Vitamin C) No Longer Active 03/03/2017 [facility] Terazosin 2 mg, 1 cap, Route: PO, Drug form: CAP, Daily, Dosing Weight 97.727, kg, Start date: 03/03/17 9:00:00 CDT, Duration: 30 day, Stop date: 04/01/17 9:00:00 CSTNotes: (Same As: Hytrin) No Longer Active 03/03/2017 [facility] Azithromycin 500 mg, Route: IV, Q24H, Dosing Weight 97.727, kg, Start date: 03/03/17 1:00:00 CDT, Duration: 30 day, Stop date: 04/01/17 1:00:00 RESISTANCE BRAZER, ABX Indication: Fever of Unknown Source 0-60 days of ageNotes: (Same As: Zithromax IV) No Longer Active 03/03/2017 [facility] Rocephin 1 gm, Route: IV, [id number], Dosing Weight 97.727, kg, Start date: 03/03/17 0:00:00 CDT, Duration: 30 day, Stop date: 04/01/17 0:00:00 RESISTANCE BRAZER, ABX Indication: Fever of Unknown Source 0-60 days of ageNotes: (S edd As: Rocephin). Use with 100 mL NS and infuse over 30 min MEDICATION WASTE Product Size: 1000 mg Product Wasted: ___ mg No Longer Active 03/03/2017 [facility] difluprednate 0.5 MG/ML Ophthalmic Suspension [Durezol] 1 drp, BOTH EYES, Q3H, After 14 days, taper dose as directed by physician., # 5 mL, 0 Refill(s) Active 03/03/2017 [facility] latanoprost 0.05 MG/ML Ophthalmic Solution 1 drp, Route: LEFT EYE, Bedtime, Drug form: SOLN, Start date: 03/02/17 21:00:00 CDT, Duration: 30 day, Stop date: 03/31/17 21:00:00 CSTNotes: Keep refrigerated. (Same as:Xalatan) Opened bottle may be stored at room temperature for 6 weeks No Longer Active 03/03/2017 [facility] Brimonidine tartrate 2 MG/ML / Timolol 5 MG/ML Ophthalmic Solution [Combigan] 1 drp, Route: LEFT EYE, Q12H, Drug form: SOLN, Start date: 03/02/17 21:00:00 CDT, Duration: 30 day, Stop date: 04/01/17 9:00:00 RESISTANCE BRAZER Inactive 03/03/2017 [facility] timolol ophthalmic 1 drp, Route: LEFT EYE, Q12H, Drug form: SOLN, Start date: 03/02/17 21:00:00 CDT, Duration: 30 day, Stop date: 04/01/17 9:00:00 CSTNotes: (Same As: Timoptic, Betimol) No Longer Active 03/03/2017 [facility] brimonidine ophthalmic 1 drp, Route: LEFT EYE, Q12H, Drug form: SOLN, Start date: 03/02/17 21:00:00 CDT, Duration: 30 day, Stop date: 04/01/17 9:00:00 CSTNotes: (Same As: Alphagan) No Longer Active 03/03/2017 [facility] Pravastatin 40 mg, 2 tab, Route: PO, Drug form: TAB, Bedtime, Dosing Weight 97.727, kg, Start date: 03/02/17 21:00:00 CDT, Duration: 30 day, Stop date: 03/31/17 21:00:00 CSTNotes: (Same as: Pravachol) No Longer Active 03/03/2017 [facility] ocular lubricant Route: BOTH EYES, BID, Drug form: SOLN, Start date: 03/02/17 17:00:00 CDT, Duration: 30 day, Stop date: 04/01/17 9:00:00 RESISTANCE BRAZER No Longer Active 03/02/2017 [facility] Tylenol 650 mg, 2 tab, Route: PO, Drug form: TAB, Q6H, Dosing Weight 97.727, kg, PRN For Temp > 100.4 F, Start date: 03/02/17 16:35:00 CDT, Duration: 30 day, Stop date: 04/01/17 16:34:00 CSTNotes: Do not exceed 4 gm/day. (Same as: Tylenol) No Longer Active 03/02/2017 [facility] prednisoLONE acetate ophthalmic Route: BOTH EYES, TID, Start date: 03/02/17 13:00:00 CDT, Duration: 30 day, Stop date: 04/01/17 9:00:00 RESISTANCE BRAZER No Longer Active 03/02/2017 [facility] Prednisolone acetate opthalmic drop Prednisolone acetate opthalmic drop, 1 drop, Drug form: MISC, Route: BOTH EYES, TID, 03/02/17 13:00:00 CDT, Duration: 30 day, Stop date: 04/01/17 9:00:00 RESISTANCE BRAZER No Longer Active 03/02/2017 [facility] Lovenox 40 mg, 0.4 mL, Route: SUB-Q, Drug form: INJ, [id number], Dosing Weight 97.727, kg, Start date: 03/02/17 10:00:00 CDT, Duration: 30 day, Stop date: 03/31/17 10:00:00 CSTNotes: (Same as: Lovenox) No Longer Active 03/02/2017 [facility] sodium chloride 0.9% 1000 ml INJ 1,000 mL 1,000 mL, Rate: 60 ml/hr, Infuse over: 16.7 hr, Route: IV, Dosing Weight 97.727 kg, Total Volume: 1,000, Start date: 03/02/17 9:37:00 CDT, Duration: 30 day, Stop date: 04/01/17 9:36:00 RESISTANCE BRAZER No Longer Active 03/02/2017 [facility] Azithromycin 500 mg, Route: IVPB, [id number], Dosing Weight 97.727, kg, Start date: 03/02/17 6:00:00 CDT, Duration: 3 day, Stop date: 03/04/17 6:00:00 CDT, ABX Indication: PneumoniaNotes: (Same As: Zithromax IV) Inactive 03/02/2017 [facility] Rocephin 1 gm, Route: IVPB, [id number], Dosing Weight 97.727, kg, Start date: 03/02/17 4:00:00 CDT, Duration: 2 day, Stop date: 03/03/17 4:00:00 CDT, ABX Indication: PneumoniaNotes: (Same As: Rocephin). Use with 100 mL NS and infuse over 30 min MEDICATION WASTE Product Size: 1000 mg Product Wasted: ___ mg Inactive 03/02/2017 [facility] Ondansetron 4 mg, 2 mL, Route: IVP, Drug form: INJ, Q6H, Dosing Weight 97.727, kg, PRN Nausea & Vomiting, Start date: 03/02/17 3:49:00 CDT, Duration: 30 day, Stop date: 04/01/17 3:48:00 CSTNotes: (Same as: Zoan) MEDICATION WASTE Product Size: 4 mg Product Wasted: ___ mg No Longer Active 03/02/2017 [facility] Acetaminophen 325 MG / Hydrocodone Bitartrate 5 MG Oral Tablet 1 tab, Route: PO, Drug Form: TAB, Dosing Weight 97.727, kg, Q4H, PRN Pain Score 4-6, Start date: 03/02/17 3:49:00 CDT, Duration: 30 day, Stop date: 04/01/17 3:48:00 CSTNotes: (Same as: [place] 325/5) Do not exceed 4gm/day of acetaminophen. No Longer Active 03/02/2017 [facility] Morphine 2 mg, 1 mL, Route: IVP, Drug form: SOLN, Q4H, Dosing Weight 97.727, kg, PRN Pain Score 7-10, Start date: 03/02/17 3:49:00 CDT, Duration: 30 day, Stop date: 04/01/17 3:48:00 RESISTANCE BRAZER No Longer Active 03/02/2017 [facility] Saline Flush 0.9% 10 ml, Route: IVP, Drug Form: INJ, Dosing Weight 97.727, kg, PRN, PRN Line Flush, Start date: 03/02/17 3:49:00 CDT, Duration: 30 day, Stop date: 04/01/17 2:48:00 CSTNotes: (Same as: BD Posiflush) No Longer Active 03/02/2017 [facility] sodium chloride 0.9% 1000 ml INJ 1,000 mL 1,000 mL, Rate: 125 ml/hr, Infuse over: 8 hr, Route: IV, Dosing Weight 97.727 kg, Total Volume: 1,000, Start date: 03/02/17 3:49:00 CDT, Duration: 30 day, Stop date: 04/01/17 3:48:00 RESISTANCE BRAZER Inactive 03/02/2017 [facility] Brimonidine tartrate 2 MG/ML / Timolol 5 MG/ML Ophthalmic Solution [Combigan] 1 drp, LEFT EYE, Q12H, # 10 mL, 0 Refill(s) No Longer Active 03/02/2017 [facility] prednisoLONE acetate ophthalmic BOTH EYES, TID, 0 Refill(s) Active 03/02/2017 [facility] Mineral Oil 0.03 MG/MG / Petrolatum, White 0.94 MG/MG Ophthalmic Ointment [Systane Nighttime] 1 appl, OPTH, Bedtime, PRN for dry eyes, # 4 gm, 0 Refill(s) Active 03/02/2017 [facility] Refresh Optive 1 drp, BOTH EYES, BID, 0 Refill(s) No Longer Active 03/02/2017 [facility] latanoprost 0.05 MG/ML Ophthalmic Solution 1 drp, LEFT EYE, Bedtime, # 1 btl, 1 Refill(s) Active 03/02/2017 [facility] Vitamin C 1000 mg oral tablet 1,000 mg=1 tab, PO, Daily, # 30 tab, 0 Refill(s) Active 03/02/2017 [facility] Centrum Silver Ultra Men's oral tablet 1 tab, PO, Daily, 0 Refill(s) Active 03/02/2017 [facility] Ascorbic Acid 226 MG / cuprous oxide 0.8 MG / dl-alpha tocopheryl acetate 200 UNT / Lutein 5 MG / Zinc Oxide 34.8 MG Oral Capsule [PreserVision with Lutein] 1 cap, PO, Daily, 0 Refill(s) No Longer Active 03/02/2017 [facility] terazosin 2 mg oral capsule 2 mg=1 cap, PO, Daily, # 30 cap, 0 Refill(s) Active 03/02/2017 [facility] pravastatin 40 mg oral tablet 40 mg=1 tab, PO, Bedtime, # 30 tab, 0 Refill(s) Active 03/02/2017 [facility] losartan 100 mg oral tablet 100 mg=1 tab, PO, Daily, # 30 tab, 0 Refill(s) Active 03/02/2017 [facility] Allergies, Adverse Reactions, Alerts Substance Category Reaction Severity Reaction type Status Date Reported Comments Source Immunizations Immunization Date Given Site Status Last Updated Comments Source influenza virus vaccine, inactivated<sup>1</sup> 03/04/2017 completed Quint[facility] Admin Note: received last Jan at [facility] pneumococcal 13-valent vaccine<sup>2</sup> 03/04/2017 completed Quinten Admin Note: received last Jan 2017 at [facility] Results Order Name Results Value Reference Range Date Interpretation Comments [facility] CHEM PANEL eGFR 97 mL/min/1.73m2 03/04/2017 Result Comment: The eGFR is calculated using the CKD-EPI formula. In most young, healthy individuals the eGFR will be >90 mL/min/1.73m2. The eGFR declines with age. An eGFR of 60-89 may be normal in some populations, particularly the elderly, for whom the CKD-EPI formula has not been extensively validated. Use of the eGFR is not recommended in the following populations: Individuals with unstable creatinine concentrations, including patients and those with serious co-morbid conditions. Patients with extremes in muscle mass or diet. The data above are obtained from the National Kidney Disease Education Program (NKDEP) which additionally recommends that when the eGFR is used in patients with extremes of body mass index for purposes of drug dosing, the eGFR should be multiplied by the estimated BMI. [facility] CHEM PANEL Calcium Lvl 8.2 mg/dL 8.5 - 10.5 03/04/2017 [facility] CHEM PANEL Chloride Lvl 104 meq/L 95 - 109 03/04/2017 [facility] CHEM PANEL Potassium Lvl 3.5 meq/L 3.5 - 5.1 03/04/2017 [facility] CHEM PANEL CO2 24 meq/L 24 - 32 03/04/2017 [facility] CHEM PANEL Creatinine Lvl 0.74 mg/dL 0.50 - 1.40 03/04/2017 [facility] CHEM PANEL Sodium Lvl 138 meq/L 135 - 145 03/04/2017 [facility] CHEM PANEL AGAP 13.5 meq/L 10.0 - 20.0 03/04/2017 [facility] CHEM PANEL BUN 13 mg/dL 7 - 22 03/04/2017 [facility] CHEM PANEL Glucose Lvl 130 mg/dL 70 - 99 03/04/2017 [facility] HEMATOLOGY WBC 7.4 K/CMM 3.7 - 10.4 03/04/2017 [facility] HEMATOLOGY RBC 3.61 M/CMM 4.70 - 6.10 03/04/2017 [facility] HEMATOLOGY MPV 7.9 fL 7.4 - 10.4 03/04/2017 [facility] HEMATOLOGY Platelet 195 K/CMM 133 - 450 03/04/2017 [facility] Hct 33.7 % 42.0 - 54.0 03/04/2017 [facility] MCV 93.4 fL 80.0 - 94.0 03/04/2017 [facility] Hgb 11.6 g/dL 14.0 - 18.0 03/04/2017 [facility] MCH 32.2 pg 27.0 - 31.0 03/04/2017 [facility] MCHC 34.5 g/dL 32.0 - 36.0 03/04/2017 [facility] RDW 13.4 % 11.5 - 14.5 03/04/2017 [facility] Basophils 0.5 % 0.0 - 1.0 03/04/2017 [facility] Lymphocytes # 0.8 K/CMM 1.0 - 5.5 03/04/2017 [facility] Eosinophils # 0.1 K/CMM 0.0 - 0.5 03/04/2017 [facility] Monocytes # 0.8 K/CMM 0.0 - 0.8 03/04/2017 [facility] Segs-Bands # 5.7 K/CMM 1.5 - 8.1 03/04/2017 [facility] Lymphocytes 10.7 % 20.0 - 40.0 03/04/2017 [facility] Segs 77.5 % 45.0 - 75.0 03/04/2017 [facility] Monocytes 10.2 % 2.0 - 12.0 03/04/2017 [facility] Eosinophils 1.1 % 0.0 - 4.0 03/04/2017 [facility] CHEM PANEL Magnesium Lvl 2.2 mg/dL 1.8 - 2.4 03/03/2017 [facility] CHEM PANEL eGFR 102 mL/min/1.73m2 03/03/2017 Result Comment: The eGFR is calculated using the CKD-EPI formula. In most young, healthy individuals the eGFR will be >90 mL/min/1.73m2. The eGFR declines with age. An eGFR of 60-89 may be normal in some populations, particularly the elderly, for whom the CKD-EPI formula has not been extensively validated. Use of the eGFR is not recommended in the following populations: Individuals with unstable creatinine concentrations, including patients and those with serious co-morbid conditions. Patients with extremes in muscle mass or diet. The data above are obtained from the National Kidney Disease Education Program (NKDEP) which additionally recommends that when the eGFR is used in patients with extremes of body mass index for purposes of drug dosing, the eGFR should be multiplied by the estimated BMI. [facility] CHEM PANEL Potassium Lvl 3.9 meq/L 3.5 - 5.1 03/03/2017 [facility] CHEM PANEL ALT 23 unit/L 0 - 65 03/03/2017 [facility] CHEM PANEL Albumin Lvl 2.5 g/dL 3.5 - 5.0 03/03/2017 [facility] CHEM PANEL A/G Ratio 0.7 0.7 - 1.6 03/03/2017 [facility] CHEM PANEL Calcium Lvl 7.9 mg/dL 8.5 - 10.5 03/03/2017 [facility] CHEM PANEL B/C Ratio 18 6 - 25 03/03/2017 [facility] CHEM PANEL Total Protein 6.0 g/dL 6.4 - 8.4 03/03/2017 [facility] CHEM PANEL AST 19 unit/L 0 - 37 03/03/2017 [facility] CHEM PANEL Globulin 3.5 g/dL 2.7 - 4.2 03/03/2017 [facility] CHEM PANEL Bili Total 0.4 mg/dL 0.2 - 1.3 03/03/2017 [facility] CHEM PANEL Alk Phos 63 unit/L 39 - 136 03/03/2017 [facility] CHEM PANEL Chloride Lvl 103 meq/L 95 - 109 03/03/2017 [facility] CHEM PANEL CO2 23 meq/L 24 - 32 03/03/2017 [facility] CHEM PANEL AGAP 13.9 meq/L 10.0 - 20.0 03/03/2017 [facility] CHEM PANEL Sodium Lvl 136 meq/L 135 - 145 03/03/2017 [facility] CHEM PANEL Creatinine Lvl 0.65 mg/dL 0.50 - 1.40 03/03/2017 [facility] CHEM PANEL BUN 12 mg/dL 7 - 22 03/03/2017 [facility] CHEM PANEL Glucose Lvl 97 mg/dL 70 - 99 03/03/2017 [facility] CHEM PANEL eGFR 87 mL/min/1.73m2 03/02/2017 Result Comment: The eGFR is calculated using the CKD-EPI formula. In most young, healthy individuals the eGFR will be >90 mL/min/1.73m2. The eGFR declines with age. An eGFR of 60-89 may be normal in some populations, particularly the elderly, for whom the CKD-EPI formula has not been extensively validated. Use of the eGFR is not recommended in the following populations: Individuals with unstable creatinine concentrations, including patients and those with serious co-morbid conditions. Patients with extremes in muscle mass or diet. The data above are obtained from the National Kidney Disease Education Program (NKDEP) which additionally recommends that when the eGFR is used in patients with extremes of body mass index for purposes of drug dosing, the eGFR should be multiplied by the estimated BMI. [facility] CHEM PANEL Chloride Lvl 100 meq/L 95 - 109 03/02/2017 [facility] CHEM PANEL CO2 25 meq/L 24 - 32 03/02/2017 [facility] CHEM PANEL Calcium Lvl 7.8 mg/dL 8.5 - 10.5 03/02/2017 [facility] CHEM PANEL Glucose Lvl 152 mg/dL 70 - 99 03/02/2017 [facility] CHEM PANEL Creatinine Lvl 0.92 mg/dL 0.50 - 1.40 03/02/2017 [facility] CHEM PANEL BUN 14 mg/dL 7 - 22 03/02/2017 [facility] CHEM PANEL Potassium Lvl 3.8 meq/L 3.5 - 5.1 03/02/2017 [facility] CHEM PANEL Sodium Lvl 133 meq/L 135 - 145 03/02/2017 [facility] CHEM PANEL AGAP 11.8 meq/L 10.0 - 20.0 03/02/2017 [facility] HEMATOLOGY Monocytes # 1.1 K/CMM 0.0 - 0.8 03/02/2017 [facility] Segs-Bands # 9.1 K/CMM 1.5 - 8.1 03/02/2017 [facility] Lymphocytes # 0.7 K/CMM 1.0 - 5.5 03/02/2017 [facility] HEMATOLOGY Basophils 0.4 % 0.0 - 1.0 03/02/2017 [facility] Monocytes 9.8 % 2.0 - 12.0 03/02/2017 [facility] Lymphocytes 6.8 % 20.0 - 40.0 03/02/2017 [facility] Segs 83.0 % 45.0 - 75.0 03/02/2017 [facility] Platelet 201 K/CMM 133 - 450 03/02/2017 [facility] MPV 8.3 fL 7.4 - 10.4 03/02/2017 [facility] MCHC 34.6 g/dL 32.0 - 36.0 03/02/2017 [facility] HEMATOLOGY RDW 13.3 % 11.5 - 14.5 03/02/2017 [facility] HEMATOLOGY Hct 37.4 % 42.0 - 54.0 03/02/2017 [facility] HEMATOLOGY Hgb 12.9 g/dL 14.0 - 18.0 03/02/2017 [facility] HEMATOLOGY RBC 3.96 M/CMM 4.70 - 6.10 03/02/2017 [facility] HEMATOLOGY WBC 10.9 K/CMM 3.7 - 10.4 03/02/2017 [facility] HEMATOLOGY MCH 32.7 pg 27.0 - 31.0 03/02/2017 [facility] HEMATOLOGY MCV 94.5 fL 80.0 - 94.0 03/02/2017 [facility] VIRAL - SEROLOGY Influ A Negative (03/02/17 3:06 AM) Negative 03/02/2017 [facility] VIRAL - SEROLOGY Influ B Negative (03/02/17 3:06 AM) Negative 03/02/2017 [facility] Vital Signs Vital Sign Value Date Comments Source Heart Rate 68 03/04/2017 [facility] Systolic (mm Hg) 138 03/04/2017 [facility] Diastolic (mm Hg) 75 03/04/2017 [facility] Respitory Rate 16 03/04/2017 [facility] Temperature Oral (F) 98.8 F 03/04/2017 [facility] Temperature Oral (F) 98.9 F 03/04/2017 [facility] Systolic (mm Hg) 134 03/04/2017 [facility] Diastolic (mm Hg) 80 03/04/2017 [facility] Heart Rate 74 03/04/2017 [facility] Respitory Rate 16 03/04/2017 [facility] Respitory Rate 14 03/04/2017 [facility] Heart Rate 74 03/04/2017 [facility] Systolic (mm Hg) 124 03/04/2017 [facility] Diastolic (mm Hg) 76 03/04/2017 [facility] Temperature Oral (F) 99.6 F 03/04/2017 [facility] BMI Calculated 34.77 03/02/2017 [facility] Weight 97.727 03/02/2017 [facility] Height 167.64 cm 03/02/2017 [facility] Encounters Location Location Details Encounter Type Encounter Number Reason For Visit Attending Provider ADM Date DC Date Status Source [facility] Inpatient [id number] Hernando Gallito 03/02/2017 03/04/2017 [facility] Procedures Procedure Code Date Perfomer Comments Source Insertion of cardiac pacemaker [id number] [facility]
== END | disposition home or self-care (01) ==
LOC: OR 09:37
PROVIDERS: ATTEND Internal Medicine Gastroenterology
DX: R13.14 Dysphagia, pharyngoesophageal phase (principal); K92.1 Melena; Z86.010 Personal history of colon polyps; K22.70 Barrett's esophagus without dysplasia; K44.9 Diaphragmatic hernia without obstruction or gangrene; K29.50 Unspecified chronic gastritis without bleeding; K22.2 Esophageal obstruction; K63.3 Ulcer of intestine; K64.8 Other hemorrhoids; K57.30 Diverticulosis of large intestine without perforation or abscess without bleeding; K21.9 Gastro-esophageal reflux disease without esophagitis; I10 Essential (primary) hypertension; I25.10 Atherosclerotic heart disease of native coronary artery without angina pectoris; F41.9 Anxiety disorder, unspecified; Z95.0 Presence of cardiac pacemaker; Z79.02 Long term (current) use of antithrombotics/antiplatelets; Z79.82 Long term (current) use of aspirin
CPT/HCPCS: 43239; 43450; 45380; 45385; 88104; 88305; 88313; J1980; J2001; J2250; J2704; 43235; 45378; 45384; 87205

== ENCOUNTER → 2018-08-02 | Outpatient (CLI) | payer MEDICARE, BC ==
[~2018-08-02] MED LIST changes: -FENTANYL CITRATE/PF 100MCG/2 ML INJ ONE; -HYOSCYAMINE SULFATE 0.5 MG/ML INJ ONE; -LIDOCAINE HCL 2% LOCAL INJ 5 ML SDV VIAL INJ ONE; -MIDAZOLAM HCL 2 MG/2 ML VIAL ONE; -PROPOFOL IV EMULSION 10 MG/ML 50 ML VIAL ONE
--- NOTE | 2018-08-02 12:50 | Diagnostic Imaging Report ---
PROCEDURE: BARIUM SWALLOW, UGI AND SBFT COMPARISON: None. INDICATIONS: Dysphasia and Melena FINDINGS: The patient was given barium and crystals to drink with evaluation of the hypopharynx, esophagus and upper GI. Additional barium was administered after fluoroscopic exam with sequential images of the abdomen were obtained through one hour and 30 minutes. Spot images of the small bowel and terminal ileum were then obtained. Swallowing mechanism is normal. No mucosal abnormalities are identified. There is a small sliding hiatal hernia. No evidence of reflux esophagitis. The fundus, body and antrum of the stomach or normal. No ulcers are identified. Small bowel motility and caliber are normal. There is no evidence of mass or mucosal abnormality. The terminal ileum is normal. Fluoroscopy time: 2.3 minutes. Total dose: 178.23 mGy CONCLUSION: Small sliding hiatal hernia with otherwise normal study. Naresh Canseco D.O. Dictated by: Naresh Canseco D.O. on 08/02/2018 at 13:02 Electronically approved by: Naresh Canseco D.O. on 08/02/2018 at 13:02
== END ==
LOC: DX 06:19
PROVIDERS: ATTEND Internal Medicine Gastroenterology
DX: K92.1 Melena (principal)
CPT/HCPCS: 74220; 74250

== ENCOUNTER → 2018-08-14 | Outpatient (CLI) | payer MEDICARE, BC ==
--- NOTE | 2018-08-15 07:34 | Diagnostic Imaging Report ---
Exam: Modified barium swallow History: Dysphagia Comparison: None available Findings: Study was performed during injection with Speech Pathology. Patient was evaluated with swallowing of the parietal area with thin and thick and solid barium impregnated substances. There is no laryngeal penetration. No aspiration is noted. Please see the full report provided by the Speech Pathologist Fluoroscopy time: Not specified Total dose: 7.52 mGy Impression: No evidence of penetration or aspiration. Signed by: Dr. Naresh Canseco DO on 08/15/2018 7:31 AM
== END ==
LOC: DX 12:18
PROVIDERS: ATTEND Internal Medicine Gastroenterology
DX: R13.10 Dysphagia, unspecified (principal)
CPT/HCPCS: 74230

== ENCOUNTER → 2025-02-04 | Day surgery (SDC) | payer BC, MEDICARE, OTHER ==
[2025-01-27 10:17] LABS: BASOPHILS % 0.8 % (0.0-1.0); EOSINOPHILS % 3.0 % (0.0-6.0); LYMPHOCYTES % 16.8 % (18.0-39.1); MONOCYTES % 10.1 % (4.4-11.3); NEUTROPHILS % 67.9 % (38.7-80.0); RED CELL DISTRIBUTION WIDTH 15.3 % (11.7-14.4)
[~2025-02-04] MED LIST changes: +CILOSTAZOL50 MG PO; +CRESTOR10 MG PO; +FAMOTIDINE20 MG PO; +FENTANYL CITRATE/PF 100MCG/2 ML INJ ONE; +FML5 ML OD; +GLYCOPYRROLATE INJ 0.2 MG/ML VIAL ONE; +HYOSCYAMINE SULFATE 0.5 MG/ML INJ ONE; +LACTATED RINGER'S 1,000 ML ONE; +LASIX20 MG PO; +LIDOCAINE HCL 2% LOCAL INJ 5 ML SDV VIAL INJ ONE; +METOCLOPRAMIDE HCL 10 MG/2ML VIAL ONE; +METOPROLOL SUCC25 MG PO; +MIDAZOLAM HCL 2 MG/2 ML VIAL ONE; +ONDANSETRON HCL INJ 2MG/ML 2ML 2 MG/ML VIAL ONE; +PREDNISOLO15 MG/5 ML PO; +PREDNISONE5 MG OS; +PROPOFOL IV EMULSION 50 ML IV ONE; +TESTOSTERONE25 GM SC; +TRIAMCINOLONE A15 G1 TOP
[2025-02-04 11:12] VITALS: TEMP 97.4
[2025-02-04 11:40] VITALS: BP 110/74; PULSE 80; RESP 16; O2SAT 97
== END | disposition home or self-care (01) ==
LOC: OR 07:31
PROVIDERS: ATTEND Internal Medicine Gastroenterology
DX: K22.711 Barrett's esophagus with high grade dysplasia (principal); K21.00 Gastro-esophageal reflux disease with esophagitis, without bleeding; Z09 Encounter for follow-up examination after completed treatment for conditions other than malignant neoplasm; K29.50 Unspecified chronic gastritis without bleeding; K44.9 Diaphragmatic hernia without obstruction or gangrene; R13.10 Dysphagia, unspecified; D12.8 Benign neoplasm of rectum; K57.30 Diverticulosis of large intestine without perforation or abscess without bleeding; K64.8 Other hemorrhoids; Z86.0100 Personal history of colon polyps, unspecified; I45.10 Unspecified right bundle-branch block; I10 Essential (primary) hypertension; E78.5 Hyperlipidemia, unspecified; R73.03 Prediabetes; G47.33 Obstructive sleep apnea (adult) (pediatric); Z01.810 Encounter for preprocedural cardiovascular examination; Z01.812 Encounter for preprocedural laboratory examination; Z79.899 Other long term (current) drug therapy; Z79.82 Long term (current) use of aspirin; Z79.52 Long term (current) use of systemic steroids
CPT/HCPCS: 36415; 43239; 43450; 45378; 45385; 85025; 88305; 88312; 93005; J1980; J2003; J2250; J2405; J2470; J2765